=== PATIENT | male | born 1980 | race Caucasian/White ===

== ENCOUNTER → 2019-07-31 | Outpatient (CLI) | payer OTHER ==
[~2019-07-31] MED LIST: AUGMENTIN; CEPHALEXIN500 M1 PO; NORCO 325 MG-51 TAB PO; NORCO 325 MG-7.1 TAB PO; PHENERGAN 25 TA25 MG PO
== END ==
LOC: COL.RAD 07:40
DX: S46.811A Strain of other muscles, fascia and tendons at shoulder and upper arm level, right arm, initial encounter (principal); S43.50XA Sprain of unspecified acromioclavicular joint, initial encounter
CPT/HCPCS: A9585; Q9967